=== PATIENT | female | born 1980 | race African-American/Black ===

== ENCOUNTER 2023-10-19 23:20 | Emergency (ER) | payer MEDICAID ==
[~2023-10-19] VITALS: Ht 157.5 cm; Wt 84.0 kg
[2023-10-19 23:52] VITALS: O2SAT 99
[2023-10-20 00:45] LABS: CLARITY URINE CLEAR (CLEAR); COLOR URINE YELLOW (YELLOW); GLUCOSE URINE NEGATIVE (NEGATIVE); KETONES URINE NEGATIVE (NEGATIVE); LEUKOCYTE ESTERASE URINE NEGATIVE (NEGATIVE); NITRITE URINE NEGATIVE (NEGATIVE); OCCULT BLOOD URINE NEGATIVE (NEGATIVE); PROTEIN URINE NEGATIVE (NEGATIVE); SPECIFIC GRAVITY URINE 1.026 (1.005-1.030)
[2023-10-20 01:00] VITALS: BP 177/81; PULSE 83; RESP 20
[2023-10-20] MEDS: METHOCARBAMOL 500MG TABLET PO ONE (01:00)
[2023-10-20] MEDS: IBUPROFEN 600MG TABLET PO ONE (01:00)
[2023-10-20 01:02] LABS: BASOPHILS % 0.4 % (0.0-2.0); DIFFERENTIAL COMMENT 0; EOSINOPHILS % 1.6 % (0.0-5.0); HEMATOCRIT. 30.9 % (36.0-48.0); HEMOGLOBIN. 9.6 g/dL (12.0-16.0); LYMPHOCYTES % 40.1 % (20.0-50.0); MEAN CORPUSCULAR HGB CONC 31.1 g/dL (31.0-37.0); MEAN CORPUSCULAR VOLUME 77.2 fL (81.0-99.0); MEAN PLATELET VOLUME 7.9 fl (7.4-10.4); MONOCYTES % 8.5 % (2.0-8.0); NEUTROPHILS % 49.4 % (40.0-76.0); PLATELET 396 x1000/uL (130-400); RED BLOOD CELL COUNT 4.01 mill/uL (4.2-5.4); RED CELL DISTRIBUTION WIDTH 17.9 % (11.6-14.6); WHITE BLOOD COUNT 9.7 x1000/uL (4.5-11.0)
[2023-10-20 01:15] LABS: ALANINE AMINOTRANSFERASE 10 IU/L (10-49); ALBUMIN 4.4 g/dL (3.2-4.8); ASPARTATE AMINOTRANSFERASE 14 IU/L (<34); BILIRUBIN TOTAL 0.2 mg/dL (0.1-1.0); CALCIUM 9.8 mg/dL (8.7-10.4); CARBON DIOXIDE 29 mEq/L (21-32); CHLORIDE 107 mEq/L (98-107); CREATININE 0.8 mg/dL (0.6-1.0); GLUCOSE 117 mg/dL (70-105); POTASSIUM 4.1 mEq/L (3.5-5.1); PROTEIN TOTAL 7.8 g/dL (6.0-8.3); SODIUM 142 mEq/L (136-145); UREA NITROGEN BLOOD 13 mg/dL (9-23)
[2023-10-20 01:44] LABS: HCG SCREEN NEGATIVE
[2023-10-20] MEDS ORDERED: IBUP-2029 MT (02:00)
[2023-10-20] MEDS ORDERED: METH-653 MT (02:00)
== END 2023-10-20 02:09 | disposition home or self-care (01) ==
LOC: ER 23:20
DX: M79.10 Myalgia, unspecified site (principal); N20.0 Calculus of kidney; I10 Essential (primary) hypertension
CPT/HCPCS: 36415; 76770; 80053; 81003; 81025; 84703; 85025; 99284